=== PATIENT | male | born 1980 | race Two or more races ===

== ENCOUNTER 2025-09-27 17:59 | Inpatient (IN) | payer MEDICAID, OTHER ==
[~2025-09-27] VITALS: Ht 172.7 cm; Wt 89.5 kg
[2025-09-27 18:43] LABS: Hematocrit 29.8 % (41.0-53.0); Hemoglobin 10.2 g/dL (13.5-17.5); Mean Corpuscular Hemoglobin 32.1 pg (28.0-32.0); Mean Corpuscular Volume 94.0 fL (80.0-100.0); Nucleated Red Blood Cells % 0.1 %
[2025-09-27 18:52] LABS: Sodium 140 mmol/L (136-145)
[2025-09-27 18:53] LABS: Anion Gap 14 (5-15)
[2025-09-27 18:54] LABS: Calcium 9.3 mg/dL (8.7-10.4)
[2025-09-27 18:58] LABS: BUN/Creatinine Ratio 3.8 (10.0-20.0); Glucose 81 mg/dL (74-106)
[2025-09-27 19:00] LABS: Blood Urea Nitrogen 26 mg/dL (9-23); Carbon Dioxide 32 mmol/L (20-31); Chloride 94 mmol/L (98-107); Potassium 3.4 mmol/L (3.5-5.1)
--- NOTE | 2025-09-27 19:24 | ED.PDOC ---
History of Present Illness HPI Comments 45-year-old, Bulgarian-speaking male presents with significant other, who is translating on his behalf, for chief complaint of near-syncope. Patient reports on sudden onset of near-syncope episode, characterized by lightheadedness, after completing his scheduled 3.5 hour hemodialysis session at 1315, this afternoon. Patient, sudden needing to sit down, immediately, and then developing a headache and nausea afterwards. Pertinent medical history of hemodialysis, which he began one year ago, and hypertension and family history of hypertension. He denies any recent ill med, injuries, sick contacts, change in medications, or further pertinent events her history. Patient denies having any chest pain, shortness of breath, vomiting, or further acute symptoms. Upon arrival to the ED triage, patient was found with a blood pressure of 180/109. Chief Complaint: High Blood Pressure Time Seen by MD: 18:20 Allergies: Coded Allergies: NO KNOWN ALLERGIES (Unverified , 09/27/25) Mode of Arrival: Ambulatory Past Medical History PAST MEDICAL HISTORY: ESRD (With hemodialysis), HTN Surgical History (Other): Fistula shunt Family History Family History: No family hx of Cancer, No family hx of DM, No family hx of Heart eduardo, No family hx ofKidney eduardo, No family hx of Liver eduardo, Family hx of DM, Family hx of Cancer, Family hx of heart eduardo, Family hx of Kidney eduardo, Family hx of liver eduardo, Family hx of lung eduardo, Family hx of stroke Social History Smoker: Non-Smoker Alcohol: Denies ETOH Use Drugs: Denies Drug Use Lives In: Home Constitutional: denies: chills, diaphoresis, fatigue, fever, malaise, sweats, weakness, others EENTM: denies: blurred vision, double vision, ear bleeding, ear discharge, ear drainage, ear pain, ear ringing, eye pain, eye redness, hearing loss, mouth pain, mouth swelling, nasal discharge, nose bleeding, nose congestion, nose pain, photophobia, tearing, throat pain, throat swelling, voice changes, others Respiratory: denies: cough, hemoptysis, orthopnea, SOB at rest, shortness of breath, SOB with excertion, stridor, wheezing, others Cardiovascular: reports: lightheadedness; denies: chest pain, dizzy spells, diaphoresis, Dyspnea on exertion, edema, irregular heart beat, left arm pain, palpitations, PND, syncope, others Gastrointestinal: reports: nausea; denies: abdomen distended, abdominal pain, blood streaked bowels, constipated, diarrhea, dysphagia, difficulty swallowing, hematemesis, melena, poor appetite, poor fluid intake, rectal bleeding, rectal pain, vomiting, others Genitourinary: denies: burning, dysuria, flank pain, frequency, hematuria, incontinence, penile discharge, penile sore, pain, testicle pain, testicle swelling, urgency, others Neurological: reports: headache; denies: dizziness, fainting, left sided numbness, left sided weakness, numbness, paresthesia, pre-existing deficit, right sided numbness, right sided weakness, seizure, speech problems, tingling, tremors, weakness, others Musculoskeletal: denies: back pain, gout, joint pain, joint swelling, muscle pain, muscle stiffness, neck pain, others Integumetry: denies: bruises, change in color, change in hair/nails, dryness, laceration, lesions, lumps, rash, wounds, others Allergic/Immunocompromised: denies: Difficulty Healing, Frequent Infections, Hives, Itching, others Hematologic/Lymphatic: denies: anemia, blood clots, easy bleeding, easy bruising, swollen glands, others Endocrine: denies: excessive hunger, excessive sweating, excessive thirst, excessive urination, flushing, intolerance to cold, intolerance to heat, unexplained weight gain, unexplained weight loss, others Psychiatric: denies: anxiety, bipolar disorder, depression, hopeless, panic disorder, schizophrenia, sleepless, suicidal, others All Other Systems: Reviewed and Negative Physical Exam General Appearance: Moderate Distress HEENT: Pale Conjuntivae (L), Pale Conjuntivae (R), Pharynx Normal, TMs Normal Neck: Full Range of Motion, Non-Tender, Normal, Normal Inspection Respiratory: Chest Non-Tender, Lungs Clear, No Accessory Muscle Use, No Respiratory Distress, Normal Breath Sounds Cardiovascular: No Edema, No JVD, No Murmur, No Gallop, Normal Peripheral Pulses, Regular Rate/Rhythm, Other (Eric catheter to the right chest) Breast Exam: Deferred Gastrointestinal: No Organomegaly, Non Tender, No Pulsatile Mass, Normal Bowel Sounds, Soft Genitalia: Deferred Pelvic: Deferred Rectal: Deferred Extremities: No calf tenderness, Normal capillary refill, Normal inspection, Normal range of motion, Non-tender, No pedal edema Musculoskeletal : Apperance: Normal Neurologic: Alert, doctor podiatric medicine II-XII nml as Tested, Motor Weakness, No Motor Deficits, Normal Affect, No Sensory Deficits Cerebellar Function: Normal Reflexes: Normal Skin: Dry, Normal Color, Warm Lymphatic: No Adenopathy Was a procedure done? Was a procedure done?: No Differential Dx Considerations may include: Dehydration, electrolyte imbalance, arrhythmia, post dialysis complication, hypertension, among others X-Ray, Labs, Meds, VS Vital Signs Date Time Temp Pulse Resp B/P (MAP) Pulse Ox O2 Delivery O2 Flow Rate FiO2 09/27/25 18:04 97.6 82 18 180/109 100 97.6 09/27/25 18:04 Room Air* 0 21 Lab Test 09/27/25 18:34 Range/Units White Blood Count 4.9 4.4-10.8 10^3/uL Red Blood Count 3.18 L 4.5-5.90 10^6/uL Hemoglobin 10.2 L 13.5-17.5 g/dL Hematocrit 29.8 L 41.0-53.0 % Mean Corpuscular Volume 94.0 80.0-100.0 fL Mean Corpuscular Hemoglobin 32.1 H 28.0-32.0 pg Mean Corpuscular Hemoglobin Concent 34.1 32.0-36.0 g/dL Red Cell Distribution Width 14.3 11.8-14.3 % Platelet Count 180 140-450 10^3/uL Mean Platelet Volume 8.6 6.9-10.8 fL Neutrophils (%) (Auto) 59.8 37.0-80.0 % Lymphocytes (%) (Auto) 24.0 10.0-50.0 % Monocytes (%) (Auto) 9.1 0.0-12.0 % Eosinophils (%) (Auto) 4.7 0.0-7.0 % Basophils (%) (Auto) 2.4 H 0.0-2.0 % Neutrophils # (Auto) 2.9 1.6-8.6 10 ^3/uL Lymphocytes # (Auto) 1.2 0.4-5.4 10 ^3/uL Monocytes # (Auto) 0.4 0-1.3 10 ^3/uL Eosinophils # (Auto) 0.2 0-0.8 10 ^3/uL Basophils # (Auto) 0.1 0-0.2 10 ^3/uL Nucleated Red Blood Cells 0.1 % Sodium Level 140 136-145 mmol/L Potassium Level 3.4 L 3.5-5.1 mmol/L Chloride Level 94 L 98-107 mmol/L Carbon Dioxide Level 32 H 20-31 mmol/L Anion Gap 14 5-15 Blood Urea Nitrogen 26 H 9-23 mg/dL Creatinine 6.82 H 0.700-1.30 mg/dL Glomerular Filtration Rate Calc 10 >90 mL/min BUN/Creatinine Ratio 3.8 L 10.0-20.0 Serum Glucose 81 74-106 mg/dL Calcium Level 9.3 8.7-10.4 mg/dL CAT scan of the head is negative An IV Hep-Lock was established The BUN is 26 and the creatinine is 6.82 which is consistent with the ESRD on dialysis The potassium is 3.4 The chemistry panel otherwise is within normal limits The patient's CBC shows chronic anemia with a hemoglobin of 10.2 and hematocrit of 29.8 The patient remains symptomatic The patient is being admitted at this time Images Reviewed?: Images reviewed and evaluated by me Time of 1ST Reevaluation: 18:50 Reevaluation 1ST: Unchanged Patient Education/Counseling: Diagnosis, Treatment, Prognosis Family Education/Counseling: Diagnosis, Treatment, Prognosis SEPSIS Sepsis Screen Date sepsis recognized/suspect: Sep 27, 2025 Time Sepsis recognized/suspect: 1803 Recent Procedure: No On Antibiotic Therapy: No Respiratory Rate >20: No Heart Rate >90: No Temp<36 C (96.8 F) or >38.3 C: No SBP <90 or MAP <65 mmHG: No New Acute Mental Status Change: No Is the patient on CPAP, BIPAP,: No Physician Orders Heplock Iv (09/27/25 18:25) Solar Energy Systems Designer (09/27/25 18:25) Blood Pressure (09/27/25 18:25) Pulse Oximetry (09/27/25 18:25) Electrocardigram (09/27/25 18:25) Head Without Contrast (09/27/25 18:25) Vital Signs Date Time Temp Pulse Resp B/P (MAP) Pulse Ox O2 Delivery O2 Flow Rate FiO2 09/27/25 18:04 97.6 82 18 180/109 100 97.6 09/27/25 18:04 Room Air* 0 21 Laboratory Tests Test 09/27/25 18:34 White Blood Count 4.9 10^3/uL (4.4-10.8) Departure 1 Departure Time of Disposition: 19:56 Impression: Primary Impression: Autonomic dysfunction Additional Impression: ESRD on dialysis Disposition: ADMITTED INPATIENT Admit to: Tele Condition: Fair Critical Care Note Critical Care Time?: Yes (45 min-critical care time only) Stability Stability form required: Yes Unstable for transfer: Telemetry monitoring (Telemetry monitoring required), ED Physician Assesment (Clinical assesment) Heart Score Heart Score: Heart Score Response (Comments) Value History N/A 0 EKG N/A 0 Age N/A 0 Risk Factors N/A 0 Troponin N/A 0 Total 0 I personally scribed for TOO SALGUERO MD ([email or web address]) on 09/27/25 at 19:24. Electronically submitted by Wilfrido Ambrose ([email or web address]). TOO SALGUERO MD Sep 27, 2025 19:24
--- NOTE | 2025-09-27 19:38 | DVH ---
COMPUTERIZED TOMOGRAPHY OF THE HEAD WITHOUT CONTRAST REASON FOR STUDY: near syncope COMPARISON: None TECHNIQUE: Helical tomographic scans were obtained through the brain. 2-D coronal and sagittal reformatted images are provided. Radiation optimization: All CT scans at this facility use at least one of these dose optimization techniques: Automated exposure control mA and/or kV adjustment per patient size (includes targeted exams where dose is matched to clinical indication) or iterative reconstruction. RADIATION DOSE: CTDI: 52 mGy DLP: 836 mGy-cm FINDINGS: No suspicious intracranial hyperdensity to suggest acute blood. There is no mass effect nor midline shift. There is no hydrocephalus. The suprasellar cistern is intact. The calvarium is intact. The visualized mastoid air cells and paranasal sinuses are clear. IMPRESSION: No acute intracranial abnormality.
--- NOTE | 2025-09-27 20:51 | DVHHPRES ---
History of Present Illness Resident Creating Document: BALJIT RICHARDSON RESIDENT History of Present Illness Mr. Kaiser Rodriguez, a 45-year-old male with past medical history of ESRD on M and F dialysis, producing urine, tunneled catheter placed on the right side of chest wall, uncontrolled hypertension presented to the ER due to severe global headache. The patient describes 3 hours after dialysis he started having intractable headache and his BP was ranging in 200s/100s. He reports experiencing 3 episodes of headache following last 3 dialysis. The patient also reports feeling dizzy while dialysis. He denies blurry vision, urinary symptoms, chest pain, shortness of breath, fever or any other complaints. Past medical history: as above Past surgical history: None Smoking history: Previously occasional smoker, did not smoked since last 2 years Alcohol: Occasional Drugs: Occasional marijuana, quit since last 2 years Home medications: Cetirizine, amlodipine, carvedilol, sevelamer, vitamin D3, Velphro, Lokelma Allergies: No known allergies Code status: Full code Review of Systems Allergies: Coded Allergies: NO KNOWN ALLERGIES (Unverified , 09/27/25) Exam Vital Signs Vital Signs Date Time Temp Pulse Resp B/P (MAP) Pulse Ox O2 Delivery O2 Flow Rate FiO2 09/27/25 18:04 97.6 82 18 180/109 100 97.6 09/27/25 18:04 Room Air* 0 21 Exam Pt is lying on bed General Appearance: Alert, Oriented X3, Cooperative, Mild distress HEENT: Atraumatic, Mucous membranes moist/pink Respiratory: Right-sided chest wall tunneled catheter and bandage placed, Clear to auscultation, Normal air movement, No added sounds Cardiovascular: Regular rate, Normal S1, Normal S2, No murmurs Abdominal/ : Active bowel sounds, Soft, no distention, no tenderness Extremities: No edema, Normal pulses, No tenderness/swelling Skin: No Significant rash, except past surgical scars Neuro: Normal speech, sensorimotor deficits none Psych/Mental Status: Mental status NL, Mood NL Nurse was there as tube worker during examination Labs/Xrays Labs Test 09/27/25 18:34 Range/Units White Blood Count 4.9 4.4-10.8 10^3/uL Red Blood Count 3.18 L 4.5-5.90 10^6/uL Hemoglobin 10.2 L 13.5-17.5 g/dL Hematocrit 29.8 L 41.0-53.0 % Mean Corpuscular Volume 94.0 80.0-100.0 fL Mean Corpuscular Hemoglobin 32.1 H 28.0-32.0 pg Mean Corpuscular Hemoglobin Concent 34.1 32.0-36.0 g/dL Red Cell Distribution Width 14.3 11.8-14.3 % Platelet Count 180 140-450 10^3/uL Mean Platelet Volume 8.6 6.9-10.8 fL Neutrophils (%) (Auto) 59.8 37.0-80.0 % Lymphocytes (%) (Auto) 24.0 10.0-50.0 % Monocytes (%) (Auto) 9.1 0.0-12.0 % Eosinophils (%) (Auto) 4.7 0.0-7.0 % Basophils (%) (Auto) 2.4 H 0.0-2.0 % Neutrophils # (Auto) 2.9 1.6-8.6 10 ^3/uL Lymphocytes # (Auto) 1.2 0.4-5.4 10 ^3/uL Monocytes # (Auto) 0.4 0-1.3 10 ^3/uL Eosinophils # (Auto) 0.2 0-0.8 10 ^3/uL Basophils # (Auto) 0.1 0-0.2 10 ^3/uL Nucleated Red Blood Cells 0.1 % Sodium Level 140 136-145 mmol/L Potassium Level 3.4 L 3.5-5.1 mmol/L Chloride Level 94 L 98-107 mmol/L Carbon Dioxide Level 32 H 20-31 mmol/L Anion Gap 14 5-15 Blood Urea Nitrogen 26 H 9-23 mg/dL Creatinine 6.82 H 0.700-1.30 mg/dL Glomerular Filtration Rate Calc 10 >90 mL/min BUN/Creatinine Ratio 3.8 L 10.0-20.0 Serum Glucose 81 74-106 mg/dL Calcium Level 9.3 8.7-10.4 mg/dL SEPSIS Sepsis Screen Date sepsis recognized/suspect: Sep 27, 2025 Time Sepsis recognized/suspect: 1803 Recent Procedure: No On Antibiotic Therapy: No Respiratory Rate >20: No Heart Rate >90: No Temp<36 C (96.8 F) or >38.3 C: No SBP <90 or MAP <65 mmHG: No New Acute Mental Status Change: No Is the patient on CPAP, BIPAP,: No Physician Orders Heplock Iv (09/27/25 18:25) Elevator Serviceman (09/27/25 18:25) Blood Pressure (09/27/25 18:25) Pulse Oximetry (09/27/25 18:25) Electrocardigram (09/27/25 18:25) Head Without Contrast (09/27/25 18:25) Vital Signs Date Time Temp Pulse Resp B/P (MAP) Pulse Ox O2 Delivery O2 Flow Rate FiO2 09/27/25 18:04 97.6 82 18 180/109 100 97.6 09/27/25 18:04 Room Air* 0 21 Laboratory Tests Test 09/27/25 18:34 White Blood Count 4.9 10^3/uL (4.4-10.8) Assessment/Plan Assessment/Plan Intractable headache secondary to hypertensive emergency Hypertensive heart disease with possible chronic diastolic heart failure -Tylenol --amlodipine and carvedilol started ESRD on dialysis -nephrology consulted -sevelamer Hypokalemia, potassium 3.4 -repleted Vitamin-D deficiency Vitamin-D 3 GI prophylaxis: Pantoprazole DVT prophylaxis: SCDs Diet: Renal Goals of care discussed with the patient for more than 27 minutes: Full code status Case discussed with Dr. Boudreaux , patient and RN Plan discussed with: Patient, Other (RN) Date of Service: Sep 28, 2025 Billing Provider: KELSIE BOUDREAUX MD Common Visit Codes: [id number] INP/OBS CARE (HIGH) Secondary Visit Codes: [id number] CARE PLAN 30 MINUTES BALJIT RICHARDSON Sep 27, 2025 20:51 KELSIE BOUDREAUX MD Sep 28, 2025 10:52
[2025-09-27] MEDS ORDERED: ACETAMINOPHEN 325 MG TAB PO PRN (21:15)
[2025-09-27] MEDS: ACETAMINOPHEN 325 MG TAB PO ONE (21:47)
[2025-09-27] MEDS: POTASSIUM CHL 20 Meq TABLET PO ONE (21:50)
[2025-09-27] MEDS: CARVEDILOL 3.125 MG TAB PO ONE (21:50)
--- NOTE | 2025-09-27 22:57 | ECG ---
[facility] Test Date: 2025-09-27 Test Time: 21:59:57 Pat Name: JULIA PIERRE Department: ER Room: 0247T Gender: M Attending Ambulatory Care: YAMILET : 1980 Requested By: TOO SALGUERO Order Number: [id number] Reading MD: Rajesh Santiago Measurements Intervals [place] Rate: 75 P: 9 AR: 147 QRS: 73 QRSD: 80 T: 96 QT: 417 QTc: 466 Interpretive Statements Sinus rhythm Nonspecific T abnormalities, lateral leads Electronically Signed On 09-29-2025 17:46:45 PST by Rajesh Santiago Please click the below link to view image of tracing.
[2025-09-27 23:12] LABS: Urine Protein, UAD 3+ (Negative)
[2025-09-27 23:15] LABS: Amphetamine Screen, Urine Neg (NEGATIVE); Barbiturate Scree,Urine Neg (NEGATIVE); Benzodiazephine Screen, Urine Neg (NEGATIVE); Cannabinoid Screen, Urine Neg (NEGATIVE); Cocaine Screen, Urine Neg (NEGATIVE); Opiate Scree,Urine Neg (NEGATIVE); Phencyclidine Screen, Urine Neg (NEGATIVE)
--- NOTE | 2025-09-27 23:31 | DVH ---
CHEST RADIOGRAPH Indication: hypertensive emergency Technique: Single frontal view of the chest was obtained COMPARISON: None FINDINGS: Right-sided dialysis line with tip near the cavoatrial junction. Lungs and pleural spaces are clear. Cardiac silhouette and bhavani are within normal limits. Bones and soft tissues demonstrate no significant abnormality. IMPRESSION: No acute disease.
[2025-09-28] VITALS (10 sets, daily range): BP systolic 140–166; BP diastolic 84–112; PULSE 66–78; RESP 14–19; TEMP 97.6–99.6; O2SAT 95–100
[2025-09-28] MEDS ORDERED: [UNRECOGNIZED DRUG - CODE] PO (01:50)
[2025-09-28] MEDS ORDERED: CARV6.2551 PO (01:50)
[2025-09-28] MEDS ORDERED: SEVE800T10 PO (01:50)
[2025-09-28] MEDS ORDERED: B-CO1TAB60 PO (01:50)
[2025-09-28] MEDS ORDERED: AMLO1TAB22 PO (01:50)
[2025-09-28] MEDS: PANTOPRAZOLE 40 MG TAB PO SCH (05:53)
[2025-09-28 07:46] LABS: Hematocrit 32.0 % (41.0-53.0); Hemoglobin 11.2 g/dL (13.5-17.5); Mean Corpuscular Hemoglobin 32.4 pg (28.0-32.0); Mean Corpuscular Volume 92.8 fL (80.0-100.0); Nucleated Red Blood Cells % 0.0 %
[2025-09-28 08:08] LABS: Alanine Aminotransferase 12 U/L (7-40); Albumin 4.4 g/dL (3.2-4.8); Alkaline Phosphatase 59 U/L (46-116); Anion Gap 10 (5-15); BUN/Creatinine Ratio 4.0 (10.0-20.0); Bilirubin, Total 0.5 mg/dL (0.2-1.0); Calcium 9.3 mg/dL (8.7-10.4); Potassium 5.0 mmol/L (3.5-5.1); Sodium 139 mmol/L (136-145); Total Protein 7.8 g/dL (5.7-8.2)
[2025-09-28 08:10] LABS: Blood Urea Nitrogen 36 mg/dL (9-23); Carbon Dioxide 33 mmol/L (20-31); Chloride 96 mmol/L (98-107); Glucose 73 mg/dL (74-106)
[2025-09-28] MEDS: SEVELAMER 800 MG TAB PO SCH (08:42)
[2025-09-28] MEDS: CARVEDILOL 3.125 MG TAB PO SCH (08:42)
--- NOTE | 2025-09-28 13:03 | DVHPNRES ---
Progress Note Date Seen: Sep 28, 2025 Resident Creating Document: MIGDALIA GRANDE Medical Necessity Reason Pt with a Central, PICC or Fol: No Subjective Review of Systems Patient is a 45-year-old Congolese-speaking male with past medical history of ESRD on HD and HTN, presented to [facility] ED with complaint of severe global headache and near-syncope. The patient reports that approximately three hours after completing his scheduled 3.5-hour dialysis session today, he developed an intractable headache and noted his blood pressure was in the 200s/100s. He describes similar episodes of headache following his last three dialysis treatments and occasional dizziness during dialysis. He describes similar episodes of headache following his last three dialysis treatments and occasional dizziness during dialysis. He also reports a near-syncope episode characterized by sudden lightheadedness requiring him to sit down, followed by headache and nausea. At home, his blood pressure is usually in the 160s systolic; he takes carvedilol twice daily. The patient was started on carvedilol 6.25 mg amlodipine 5 mg. Past medical history: End-stage renal disease on hemodialysis Mondays and Fridays, residual urine output, tunneled catheter in the right chest wall, and uncontrolled hypertension Past surgical history: None Smoking history: Previously occasional smoker, did not smoked since last 2 years Alcohol: Occasional Drugs: Occasional marijuana, quit since last 2 years Home medications: Cetirizine, carvedilol, sevelamer, vitamin D3, Velphro, Lokelma Allergies: No known allergies Patient seen and examined at bedside. Patient is alert and oriented to time, place person and responding to all questions. Constitutional: Headache, dizziness Eyes: No Pain, No Vision change, No Conjunctivae inflammation, No Eyelid inflammation, No Other, No Redness ENT: No Ear pain, No Ear discharge, No Nose pain, No Nose discharge, No Nose congestion, No Mouth pain, No Mouth swelling, No Throat pain, No Throat swelling, No Other Cardiovascular: No Chest Pain, No Palpitations, No Orthopnea, No Paroxysmal No Dyspnea, No Edema, Lt Headedness, No Other Respiratory: No Cough, No Dry, No Shortness of breath, No SOB with exertion, No Wheezing, No Hemoptysis, No Pleuritic Pain, No Sputum, No Other Gastrointestinal: Nausea, No Vomiting, No Abdominal Pain, No Diarrhea, No Constipation, No Melena, No Hematochezia, No Other Genitourinary: No Dysuria, No Frequency, No Incontinence, No Hematuria, No Retention, No Other Musculoskeletal: No other, No neck pain, No shoulder pain, No arm pain, No back pain, No hand pain, No leg pain, No foot pain Skin: No Rash, No Lesions, No Jaundice, No Bruising, No Other Objective vital signs Vital Sign Date Time Temp Pulse Resp B/P (MAP) Pulse Ox O2 Delivery O2 Flow Rate FiO2 09/28/25 12:48 98.0 66 18 166/112 (130) 100 98.0 09/28/25 08:00 Room Air* 0 21 Total Intake and Output 09/27/25 09/27/25 09/28/25 15:00 23:00 07:00 Intake Total 0 ml Balance 0 ml medications Current Medications Medications Dose Ordered Sig/Juan Pablo Route Start Time Stop Time Status Last Admin Dose Admin Acetaminophen 650 mg Q4HP PRN PO 09/27/25 21:15 Amlodipine Besylate 5 mg DAILY PO 09/28/25 10:00 09/28/25 08:41 5 MG Carvedilol 6.25 mg Q12HR PO 09/28/25 10:00 09/28/25 08:42 6.25 MG Sevelamer HCl 800 mg TIDWM PO 09/28/25 08:00 09/28/25 08:42 800 MG Pantoprazole Sodium 40 mg DAILY@0600 PO 09/28/25 06:00 09/28/25 05:53 40 MG Examination General Appearance: Cooperative. Well developed. Well nourished. NAD Head Exam: Normal inspection Neck Exam: Normal inspection. Non-tender. Normal alignment Pulmonary/Respiratory: Chest non-tender. Clear bilateral breath sounds, no crackles, no wheezing. Cardiovascular/Chest: Regular rate and rhythm. No murmurs. No JVD. Eric catheter to the right chest Peripheral Pulses: 2+ Radial (R). 2+ Radial (L). 2+ Pedal (R). 2+ Pedal (L) Abdominal Exam: Normal bowel sounds. Soft. normal abdomen, no visible veins, Nontender. No hepatospenomegaly. No masses Ankle Exam: Negative ankle edema Lower extremities: Negative lower extremity edema Neuro/Mental Status: A&O x4. Coherent. Thoughts/Psych: Normal thought pattern. Appropriate mood and affect. Good judgement and insight Skin Exam: Normal inspection. Normal color. Warm. Dry laboratory and microbiology Laboratory Tests 09/28/25 07:32 Test 09/28/25 07:32 Range/Units Serum Glucose 73 L 74-106 mg/dL Labs and/or images reviewed: Labs reviewed by me, Image(s) reviewed by me Problem List/Assessment/Plan Problem List/Assessment/Plan Intractable headache secondary to hypertensive emergency Hypertensive heart disease with possible chronic diastolic heart failure Intractable headache due to above EKG: Sinus rhythm. Nonspecific T abnormalities, lateral leads Chest X-ray: No acute disease. Head CT: No acute intracranial abnormality. Pain management with Tylenol Amlodipine 10 MG PO daily Carvedilol 6.25 MG PO q12h Hydralazine 25 MG PO q8h MRSA screen Hepatitis B surgace antigen End-stage renal disease on hemodialysis Saturday add Saturday Nephrology consulted Sevelamer 800 MG PO tid Hypokalemia secondary to recent dialysis, potassium 3.4 repleted Diet: Renal PUD prophylaxis: protonix 40mg Goals of care: Full code, discussed for >30 minutes on 09/28/25 Plan discussed with patient Plan discussed with Dr. Ellison Plan discussed with: Patient My Orders My Orders Orders - MIGDALIA GRANDE Procedure Category Date Status Time Complete Blood Count LAB 09/29/25 Verified 04:00 Comprehensive LAB 09/29/25 Verified Metabolic Panel 04:00 Date of Service: Sep 28, 2025 Billing Provider: VELMA ELLISON MD Common Visit Codes: [id number] INP/OBS CARE(HIGH) MIGDALIA GRANDE Sep 28, 2025 13:03
--- NOTE | 2025-09-28 15:01 | DVHINCON2 ---
Date of service: Sep 28, [address] Mclean Reason for Consultation End-stage renal disease History of Present Illness 45-year-old patient with significant history of end-stage renal disease on hemodialysis Mondays and Fridays with some residual renal function, hypertension who presents to the hospital with global headache throbbing in nature he states that he has had similar symptoms after dialysis with his blood pressure is elevated to 200/100. Occasional he will also feel dizziness. Patient endorses doing well by the 3 hour tong of dialysis but three and a 1/2 hours he feels drained at headache. He has been on hemodialysis for two years previously pulled the and recently moved to the area and he has other goal only three dialysis treatments recently. At home his blood pressure is usually in the 160 systolic takes carvedilol twice a day only. He denies chest pain orthopnea PND head he makes significant amount of urine. Laboratory data after his dialysis yesterday revealed mild hypokalemia. Past Medical History End-stage renal disease, hypertension Past Surgical History Dialysis access placement Allergies: Coded Allergies: NO KNOWN ALLERGIES (Unverified , 09/27/25) Home Meds Reported Medications Sevelamer Carbonate (Sevelamer Carbonate) 800 Mg Tab, 2 TAB PO TID 09/28/25 Amlodipine Besylate (Amlodipine Besylate) 5 Mg Tab, 1 TAB PO DAILY 09/28/25 Carvedilol (Carvedilol) 6.25 Mg Tab, 1 TAB PO BID 09/28/25 Cholecalciferol (D3 High Potency) 250 Mcg Cap, 1 TAB PO DAILY 09/28/25 B-Complex W/ C & Folic Acid (Nephro-Jae) Tab, 1 TAB PO DAILY 09/28/25 Current Medications Current Medications Medications (Trade) Dose Ordered Sig/Juan Pablo Route PRN Reason Start Time Stop Time Status Last Admin Acetaminophen (Tylenol Tablet) 650 mg Q4HP PRN PO PAIN SCALE 1-3 OR TEMP>100.4 09/27/25 21:15 Amlodipine Besylate (Norvasc Tablet) 5 mg DAILY PO 09/28/25 10:00 09/28/25 08:41 Carvedilol (Coreg Tablet) 6.25 mg Q12HR PO 09/28/25 10:00 09/28/25 08:42 Sevelamer HCl (Renagel) 800 mg TIDWM PO 09/28/25 08:00 09/28/25 13:56 Pantoprazole Sodium (Protonix Tablet) 40 mg DAILY@0600 PO 09/28/25 06:00 09/28/25 05:53 Family History: Hypertension G8 MOTHER Social History Denies alcohol drug or smoking Review of Systems HEENT: Oral mucosa dry Neck no JVD Cardiovascular: Denies for chest pain denies orthopnea or PND Respiratory: Denies cough or shortness of breath Gastrointestinal: Denies for nausea vomiting Musculoskeletal: Denies myalgias Neurological: Denies focal weakness, positive for headache Dermatological: Denies any rash The rest of the review of systems were reviewed pertinent positives and pertinent negatives are as per HPI up to 12 points review of systems H&P Exam Vital Signs/I&O Vital Sign Date Time Temp Pulse Resp B/P (MAP) Pulse Ox O2 Delivery O2 Flow Rate FiO2 09/28/25 12:48 98.0 66 18 166/112 (130) 100 98.0 09/28/25 08:00 Room Air* 0 21 Intake and Output 09/27/25 09/28/25 19:00 07:00 Intake Total 0 ml Balance 0 ml Intake Oral 0 ml # Voids 1 Physical Exam HEENT: No evidence of JVD, no oral ulcers. Pulmonary: Lungs are clear on auscultation bilaterally Cardiovascular S1-S2, no S3 or S4 Abdomen: Bowel sounds positive, soft no rebound tenderness Skin: No rash Neurological: Alert, oriented, no focal weakness Labs/Diagnostic Data Labs/Diagnostic Data Laboratory Tests Test 09/28/25 07:32 09/27/25 22:30 09/27/25 18:34 Range/Units White Blood Count 4.9 4.9 4.4-10.8 10^3/uL Red Blood Count 3.44 L 3.18 L 4.5-5.90 10^6/uL Hemoglobin 11.2 L 10.2 L 13.5-17.5 g/dL Hematocrit 32.0 L 29.8 L 41.0-53.0 % Mean Corpuscular Volume 92.8 94.0 80.0-100.0 fL Mean Corpuscular Hemoglobin 32.4 H 32.1 H 28.0-32.0 pg Mean Corpuscular Hemoglobin Concent 35.0 34.1 32.0-36.0 g/dL Red Cell Distribution Width 14.0 14.3 11.8-14.3 % Platelet Count 180 180 140-450 10^3/uL Mean Platelet Volume 8.8 8.6 6.9-10.8 fL Neutrophils (%) (Auto) 61.3 59.8 37.0-80.0 % Lymphocytes (%) (Auto) 22.8 24.0 10.0-50.0 % Monocytes (%) (Auto) 6.5 9.1 0.0-12.0 % Eosinophils (%) (Auto) 6.0 4.7 0.0-7.0 % Basophils (%) (Auto) 3.4 H 2.4 H 0.0-2.0 % Neutrophils # (Auto) 3.0 2.9 1.6-8.6 10 ^3/uL Lymphocytes # (Auto) 1.1 1.2 0.4-5.4 10 ^3/uL Monocytes # (Auto) 0.3 0.4 0-1.3 10 ^3/uL Eosinophils # (Auto) 0.3 0.2 0-0.8 10 ^3/uL Basophils # (Auto) 0.2 0.1 0-0.2 10 ^3/uL Nucleated Red Blood Cells 0.0 0.1 % Sodium Level 139 140 136-145 mmol/L Potassium Level 5.0 3.4 L 3.5-5.1 mmol/L Chloride Level 96 L 94 L 98-107 mmol/L Carbon Dioxide Level 33 H 32 H 20-31 mmol/L Anion Gap 10 14 5-15 Blood Urea Nitrogen 36 #H 26 H 9-23 mg/dL Creatinine 8.98 #H 6.82 H 0.700-1.30 mg/dL Glomerular Filtration Rate Calc 7 10 >90 mL/min BUN/Creatinine Ratio 4.0 L 3.8 L 10.0-20.0 Serum Glucose 73 L 81 74-106 mg/dL Calcium Level 9.3 9.3 8.7-10.4 mg/dL Total Bilirubin 0.5 0.2-1.0 mg/dL Aspartate Amino Transferase (AST) 10 L 13-40 U/L Alanine Aminotransferase (ALT) 12 7-40 U/L Alkaline Phosphatase 59 46-116 U/L Total Protein 7.8 5.7-8.2 g/dL Albumin 4.4 3.2-4.8 g/dL Urine Color Colorless Yellow Urine Clarity Clear Clear Urine pH 8.0 5.0-9.0 Urine Specific [place] 1.004 1.001-1.035 Urine Protein 3+ H Negative Urine Ketones Negative Negative Urine Blood Trace H Negative /uL Urine Nitrite Negative Negative Urine Bilirubin Negative Negative Urine Urobilinogen Normal Negative mg/dL Urine Leukocyte Esterase Negative Negative /uL Urine RBC None seen 0 - 3 /hpf Urine Microscopic WBC 3 0-3 /HPF Urine Squamous Epithelial Cells None seen <5 /hpf Urine Bacteria None seen None Seen /hpf Urine Glucose 1+ H Normal mg/dL Urine Opiates Screen Neg NEGATIVE Urine Fentanyl Screen Neg NEGATIVE Urine Barbiturates Screen Neg NEGATIVE Urine Phencyclidine Screen Neg NEGATIVE Urine Amphetamines Screen Neg NEGATIVE Urine Benzodiazepines Screen Neg NEGATIVE Urine Cocaine Screen Neg NEGATIVE Urine Cannabinoids Screen Neg NEGATIVE HCT chest x-ray within the normal limits Assessment Assessment: 1. End-stage renal disease on hemodialysis Saturday add Saturday 2. Accelerated hypertension 3. Headache 4. Hypokalemia secondary to recent dialysis Recommendation add plan Increase amlodipine 10 mg daily Start hydralazine 25 mg every 8 hours, hold for SBP less than 110 Continue carvedilol 6.25 mg twice a day PRN clonidine 0.1 mg for SBP more than 180 Low-potassium diet Dialysis as per his regular schedule Resume antihypertensive meds up titrate as needed Fluid restriction less than 1 L per day We will modify his dialysis as an outpatient He needs a AV fistula creation which is in process Thank you very much for allowing us to participate in the care of this patient please contact if you have any questions. Plan discussed with: Patient JACOB PHAN MD Sep 28, 2025 15:01
--- NOTE | 2025-09-28 20:59 | DVHSR ---
APPROVED REPORT EXAM: Two-dimensional and M-mode echocardiogram with Doppler and color Doppler. Blood Pressure: 148/92 mmHg INDICATION Hypertension RISK FACTORS Height: 5'8", Weight: 194 DIMENSIONS LVDd 5.4 (3.8-5.7cm) LA (2D) 4.0 (1.9-4.0cm) Aortic Root 3.3 (2.0-3.7cm) LVDs 4.0 (2.5-4.0cm) LA (MM) (1.9-4.0cm) Aortic Cusp Exc 2.1 (1.5-2.0cm) EF (%) 50.0 (55-70%) Rt. Atrium 4.1 (1.9-4.0cm) Asc. Aorta 3.2 cm IVSd 1.0 (0.7-1.1cm) RV (D) 3.9 (1.8-2.4cm) PWd 1.0 (0.7-1.1cm) Mitral Valve Mitral Mitral Stenosis E wave 0.66m/s MV Mean GR. mmHg A wave 0.71m/s MV Peak GR. mmHg E/A ratio 0.9 2D MVA cm2 DECEL Time 217ms PRESS 1/2 Time ms Aortic Valve Aortic Valve Aortic Stenosis V1 1.01m/s AO Mean GR. 4mmHg V2 1.31m/s AO Peak GR. 7mmHg LVOT Diameter 2.3 (1.8-2.4cm) Doppler KAILYN 3.20cm2 Pulmonic Valve V2 1.40m/s Tricuspid Valve TR Velocity 2.60m/s RVSP 30mmHg Conclusion NORMAL LV EF AND IS 65% NORMAL VALVES NORMAL RV FUNCTION NO EFFUSION
[2025-09-29 01:00] VITALS: BP 134/86; PULSE 83; RESP 18; TEMP 98.1; O2SAT 95
[2025-09-29 05:00] VITALS: BP 128/79; PULSE 73; RESP 18; TEMP 98; O2SAT 98
[2025-09-29 06:33] LABS: Hematocrit 27.4 % (41.0-53.0); Hemoglobin 9.7 g/dL (13.5-17.5); Mean Corpuscular Hemoglobin 32.8 pg (28.0-32.0); Mean Corpuscular Volume 92.8 fL (80.0-100.0); Nucleated Red Blood Cells % 0.1 %
[2025-09-29 06:48] LABS: Alanine Aminotransferase 14 U/L (7-40); Alkaline Phosphatase 47 U/L (46-116); Anion Gap 13 (5-15); BUN/Creatinine Ratio 5.1 (10.0-20.0); Carbon Dioxide 29 mmol/L (20-31); Glucose 74 mg/dL (74-106); Sodium 139 mmol/L (136-145); Total Protein 6.4 g/dL (5.7-8.2)
[2025-09-29 06:49] LABS: Albumin 3.7 g/dL (3.2-4.8); Bilirubin, Total 0.3 mg/dL (0.2-1.0)
[2025-09-29 07:28] LABS: Blood Urea Nitrogen 55 mg/dL (9-23); Calcium 8.5 mg/dL (8.7-10.4); Chloride 97 mmol/L (98-107); Potassium 5.3 mmol/L (3.5-5.1)
[2025-09-29 08:00] VITALS: RESP 18
[2025-09-29 08:42] VITALS: BP 117/77; PULSE 80; RESP 16; TEMP 98.5; O2SAT 96
[2025-09-29] MEDS: FUROSEMIDE 20 MG/2 ML VIAL IV ONE (10:14)
[2025-09-29] MEDS: SODIUM ZIRCONIUM CYCL 10 GM PAK PO ONE (10:16)
[2025-09-29 12:34] VITALS: BP 140/85; PULSE 64; RESP 18; TEMP 97.6; O2SAT 95
[2025-09-29] MEDS ORDERED: CARV-214 PO (13:39)
[2025-09-29] MEDS ORDERED: AML5T PO (13:39)
[2025-09-29] MEDS ORDERED: HYDR25TA87 PO (13:39)
[2025-09-29] MEDS ORDERED: SODI5PAK PO (13:39)
--- NOTE | 2025-09-29 13:41 | DVHDSRES ---
Discharge Summary Date of Admission Resident Creating Document: MIGDALIA GRANDE RESIDENT Sep 27, 2025 at 21:14 Date of Discharge: Sep 29, 2025 Admitting Diagnosis headache Labs/Diagnostic Data: Laboratory Results Test 09/29/25 04:30 09/27/25 22:30 09/27/25 18:34 White Blood Count 4.5 10^3/uL (4.4-10.8) Red Blood Count 2.96 10^6/uL (4.5-5.90) Hemoglobin 9.7 g/dL (13.5-17.5) Hematocrit 27.4 % (41.0-53.0) Mean Corpuscular Volume 92.8 fL (80.0-100.0) Mean Corpuscular Hemoglobin 32.8 pg (28.0-32.0) Mean Corpuscular Hemoglobin Concent 35.3 g/dL (32.0-36.0) Red Cell Distribution Width 13.9 % (11.8-14.3) Platelet Count 144 10^3/uL (140-450) Mean Platelet Volume 9.5 fL (6.9-10.8) Neutrophils (%) (Auto) 49.7 % (37.0-80.0) Lymphocytes (%) (Auto) 33.2 % (10.0-50.0) Monocytes (%) (Auto) 7.9 % (0.0-12.0) Eosinophils (%) (Auto) 6.7 % (0.0-7.0) Basophils (%) (Auto) 2.5 % (0.0-2.0) Neutrophils # (Auto) 2.2 10 ^3/uL (1.6-8.6) Lymphocytes # (Auto) 1.5 10 ^3/uL (0.4-5.4) Monocytes # (Auto) 0.4 10 ^3/uL (0-1.3) Eosinophils # (Auto) 0.3 10 ^3/uL (0-0.8) Basophils # (Auto) 0.1 10 ^3/uL (0-0.2) Nucleated Red Blood Cells 0.1 % Sodium Level 139 mmol/L (136-145) Potassium Level 5.3 mmol/L (3.5-5.1) Chloride Level 97 mmol/L (98-107) Carbon Dioxide Level 29 mmol/L (20-31) Anion Gap 13 (5-15) Blood Urea Nitrogen 55 mg/dL (9-23) Creatinine 10.84 mg/dL (0.700-1.30) Glomerular Filtration Rate Calc 5 mL/min (>90) BUN/Creatinine Ratio 5.1 (10.0-20.0) Serum Glucose 74 mg/dL (74-106) Calcium Level 8.5 mg/dL (8.7-10.4) Total Bilirubin 0.3 mg/dL (0.2-1.0) Aspartate Amino Transferase (AST) < 8 U/L (13-40) Alanine Aminotransferase (ALT) 14 U/L (7-40) Alkaline Phosphatase 47 U/L (46-116) Total Protein 6.4 g/dL (5.7-8.2) Albumin 3.7 g/dL (3.2-4.8) Urine Color Colorless (Yellow) Urine Clarity Clear (Clear) Urine pH 8.0 (5.0-9.0) Urine Specific [place] 1.004 (1.001-1.035) Urine Protein 3+ (Negative) Urine Ketones Negative (Negative) Urine Blood Trace /uL (Negative) Urine Nitrite Negative (Negative) Urine Bilirubin Negative (Negative) Urine Urobilinogen Normal mg/dL (Negative) Urine Leukocyte Esterase Negative /uL (Negative) Urine RBC None seen /hpf (0 - 3) Urine Microscopic WBC 3 /HPF (0-3) Urine Squamous Epithelial Cells None seen /hpf (<5) Urine Bacteria None seen /hpf (None Seen) Urine Glucose 1+ mg/dL (Normal) Urine Opiates Screen Neg (NEGATIVE) Urine Fentanyl Screen Neg (NEGATIVE) Urine Barbiturates Screen Neg (NEGATIVE) Urine Phencyclidine Screen Neg (NEGATIVE) Urine Amphetamines Screen Neg (NEGATIVE) Urine Benzodiazepines Screen Neg (NEGATIVE) Urine Cocaine Screen Neg (NEGATIVE) Urine Cannabinoids Screen Neg (NEGATIVE) Hepatitis B Surface Antigen Negative (Negative) Other Laboratory Tests 09/29/25 04:30 Brief Hx & Hospital Course: The patient is a 45-year-old Stateless-speaking male with a past medical history of end-stage renal disease on hemodialysis and uncontrolled hypertension who presented to [facility] Emergency Department with complaints of severe global headache and near-syncope. He reported that approximately three hours after completing his scheduled 3.5-hour dialysis session, he developed an intractable headache and noted his blood pressure was in the 200s/100s. He described similar episodes of headache following his last three dialysis treatments and occasional dizziness during dialysis. He also reported a near- syncope episode characterized by sudden lightheadedness requiring him to sit down, followed by headache and nausea. At home, his blood pressure is usually in the 160s systolic, and he takes carvedilol twice daily. Past medical history includes end-stage renal disease on hemodialysis Mondays and Fridays with residual urine output and a tunneled catheter in the right chest wall, and uncontrolled hypertension. He has no past surgical history. Social history is notable for previous occasional smoking and marijuana use, both discontinued two years ago, and occasional alcohol use. Home medications include cetirizine, carvedilol, sevelamer, vitamin D3, Velphoro, and Lokelma. He has no known drug allergies. On examination, the patient was alert and oriented to time, place, and person and responded appropriately to questions. Initial blood pressure was markedly elevated. EKG showed sinus rhythm with nonspecific T-wave abnormalities in lateral leads. Chest X-ray revealed no acute disease. Head CT showed no acute intracranial abnormality. Laboratory evaluation revealed hypokalemia with potassium of 3.4 mmol/L, which was repleted. MRSA screen and hepatitis B surface antigen were sent. The patient was managed with pain control using acetaminophen and antihypertensive therapy including amlodipine 10 mg PO daily, carvedilol 6.25 mg PO every 12 hours, and hydralazine 25 mg PO every 8 hours. Nephrology was consulted for ESRD management, and sevelamer 800 mg PO three times daily was continued. The patient was placed on a renal diet and received PUD prophylaxis with pantoprazole 40 mg daily. Dialysis schedule was maintained on Saturday and Saturday. An echocardiogram was performed for evaluation of hypertensive emergency. Blood pressure at the time of the study was 148/92 mmHg. The study demonstrated normal left ventricular ejection fraction of 65%, normal cardiac valves, normal right ventricular function, and no pericardial effusion. Measurements included LVDd 5.4 cm, LVDs 4.0 cm, LA 4.0 cm, EF 65%, IVSd 1.0 cm, and PWd 1.0 cm. Doppler findings showed normal mitral, aortic, tricuspid, and pulmonic valve function with no significant gradients or stenosis. The patient remained hemodynamically stable after initiation of therapy and reported improvement in headache and dizziness. His vitals have remained stable for discharge home, follow up visit in discharge clinic. All medications and recommendations were thoroughly explained and the patient states he understands and agrees. Detailed discussion held with patient at bedside were all questions were answered and concerns were addressed. Physical examination General Appearance: Cooperative. Well developed. Well nourished. NAD Head Exam: Normal inspection Neck Exam: Normal inspection. Non-tender. Normal alignment Pulmonary/Respiratory: Chest non-tender. Clear bilateral breath sounds, no crackles, no wheezing. Cardiovascular/Chest: Regular rate and rhythm. No murmurs. No JVD. Peripheral Pulses: 2+ Radial (R). 2+ Radial (L). 2+ Pedal (R). 2+ Pedal (L) Abdominal Exam: Normal bowel sounds. Soft. normal abdomen, no visible veins, Nontender. No hepatospenomegaly. No masses Ankle Exam: Negative ankle edema Lower extremities: Negative lower extremity edema Neuro/Mental Status: A&O x4. Coherent. Thoughts/Psych: Normal thought pattern. Appropriate mood and affect. Good judgement and insight Skin Exam: Normal inspection. Normal color. Warm. Dry Operations or Procedures PATIENT: JULIA PIERRE ACCT: [id number] UNIT: [id number] : 1980 LOC: OVERFLOW ROOM / BED: [address] [place] [address] AGE / SEX: 45 / M ADM STATUS: ADM IN SERVICE ORDERING PHYSICIAN: LEIGH ANN EPPERSON RESIDENT PROCEDURE(s): CXRP - CHEST PORTABLE REASON: hypertensive emergency ORDER NUMBER(s): [id number], ACCESSION NUMBER(s): [id number] CHEST RADIOGRAPH Indication: hypertensive emergency Technique: Single frontal view of the chest was obtained COMPARISON: None FINDINGS: Right-sided dialysis line with tip near the cavoatrial junction. Lungs and pleural spaces are clear. Cardiac silhouette and bhavani are within normal limits. Bones and soft tissues demonstrate no significant abnormality. IMPRESSION: No acute disease. PATIENT: JULIA PIERRE ACCT: [id number] UNIT: [id number] : 1980 LOC: ER ROOM / BED: / AGE / SEX: 45 / M ADM STATUS: REG ER SERVICE 1825 ORDERING PHYSICIAN: TOO SALGUERO MD PROCEDURE(s): HWOCT - HEAD WITHOUT CONTRAST REASON: near syncope ORDER NUMBER(s): [id number], ACCESSION NUMBER(s): [id number] COMPUTERIZED TOMOGRAPHY OF THE HEAD WITHOUT CONTRAST REASON FOR STUDY: near syncope COMPARISON: None TECHNIQUE: Helical tomographic scans were obtained through the brain. 2-D coronal and sagittal reformatted images are provided. Radiation optimization: All CT scans at this facility use at least one of these dose optimization techniques: Automated exposure control mA and/or kV adjustment per patient size (includes targeted exams where dose is matched to clinical indication) or iterative reconstruction. RADIATION DOSE: CTDI: 52 mGy DLP: 836 mGy-cm FINDINGS: No suspicious intracranial hyperdensity to suggest acute blood. There is no mass effect nor midline shift. There is no hydrocephalus. The suprasellar cistern is intact. The calvarium is intact. The visualized mastoid air cells and paranasal sinuses are clear. IMPRESSION: No acute intracranial abnormality. PATIENT: JULIA PIERRE ACCT: [id number] UNIT: [id number] : 1980 LOC: [facility] ROOM / BED: [facility] / A AGE / SEX: 45 / M ADM STATUS: ADM IN SERVICE 2240 ORDERING PHYSICIAN: LEIGH ANN EPPERSON PROCEDURE(s): ECIDC - ECHO 2D MODE CARDIAC DOP REASON: Hypertensive emergency ORDER NUMBER(s): [id number], ACCESSION NUMBER(s): [id number] APPROVED REPORT EXAM: Two-dimensional and M-mode echocardiogram with Doppler and color Doppler. Blood Pressure: 148/92 mmHg INDICATION Hypertension RISK FACTORS Height: 5'8", Weight: 194 DIMENSIONS LVDd 5.4 (3.8-5.7cm) LA (2D) 4.0 (1.9-4.0cm) Aortic Root 3.3 (2.0- 3.7cm) LVDs 4.0 (2.5-4.0cm) LA (MM) (1.9-4.0cm) Aortic Cusp Exc 2.1 (1.5- 2.0cm) EF (%) 50.0 (55-70%) Rt. Atrium 4.1 (1.9-4.0cm) Asc. Aorta 3.2 cm IVSd 1.0 (0.7-1.1cm) RV (D) 3.9 (1.8-2.4cm) PWd 1.0 (0.7-1.1cm) Mitral Valve Mitral Mitral Stenosis E wave 0.66m/s MV Mean GR. mmHg A wave 0.71m/s MV Peak GR. mmHg E/A ratio 0.9 2D MVA cm2 DECEL Time 217ms PRESS 1/2 Time ms Aortic Valve Aortic Valve Aortic Stenosis V1 1.01m/s AO Mean GR. 4mmHg V2 1.31m/s AO Peak GR. 7mmHg LVOT Diameter 2.3 (1.8-2.4cm) Doppler KAILYN 3.20cm2 Pulmonic Valve V2 1.40m/s Tricuspid Valve TR Velocity 2.60m/s RVSP 30mmHg Conclusion NORMAL LV EF AND IS 65% NORMAL VALVES NORMAL RV FUNCTION NO EFFUSION SIGNED BY: ALEX SUE MD SIGNED DATE/TIME: 09/28/252058 PATIENT: JULIA PIERRE ACCT: [id number] : 1980 LOC: OVERFLOW ROOM / BED: [address] [place] [address] A AGE / SEX: 45 / M ADM STATUS: ADM IN SERVICE UNIT: [id number] ORDERING PHYSICIAN: TOO SALGUERO MD PROCEDURE(s): EKG - ELECTROCARDIGRAM ORDER NUMBER(s): [id number], ACCESSION NUMBER(s): [id number] [facility] Test Date: 2025-09-27 Test Time: 21:59:57 Pat Name: JULIA PIERRE Department: ER Room: [address] [place] [address] Gender: M Coke Inspector: YAMILET : 1980 Requested By: TOO SALGUERO Order Number: [id number] Reading MD: Measurements Intervals [place] Rate: 75 P: 9 IA: 147 QRS: 73 QRSD: 80 T: 96 QT: 417 QTc: 466 Interpretive Statements Sinus rhythm Nonspecific T abnormalities, lateral leads Condition at Discharge: Stable Final Diagnosis/Problems List Hypertensive emergency Hypertensive heart disease with possible chronic diastolic heart failure End-stage renal disease on hemodialysis Hypokalemia Discharge Disposition: Home Discharge Instruct/Medications Diet: Renal Activity: No Restrictions, As Tolerated Follow Up/Referral: Follow up with PCP in 1 week Medications: see prescription continue home medications Scheduled Amlodipine Besylate (Amlodipine Besylate), 1 TAB PO DAILY, (Reported) Amlodipine Besylate (Norvasc Tablet), 10 MG PO DAILY B-Complex W/ C & Folic Acid (Nephro-Jae), 1 TAB PO DAILY, (Reported) Carvedilol (Carvedilol), 1 TAB PO BID, (Reported) Carvedilol (Coreg), 6.25 MG PO Q12HR Cholecalciferol (D3 High Potency), 1 TAB PO DAILY, (Reported) Hydralazine HCl (Hydralazine HCl), 25 MG PO Q8HR Sevelamer Carbonate (Sevelamer Carbonate), 2 TAB PO TID, (Reported) Sodium Zirconium Cyclosilicate (Lokelma), 5 GM PO DAILY Discharge Statement: "Patient was advised to return to the ER or call 911 if any headaches, dizziness, shortness of breath, chest pain, abdominal pain, bleeding, fevers, or worsening of medical condition. Patient was counseled about treatment plan, medications, possible side effects, patientverbalized understanding. All questions were answered to the best of my ability. This discharge took greater then 30 minutes in planning, reviewing documentation, counseling the patient, and discussing with other team members." ASSESSMENT ASSESSMENT Assessment Hypertensive emergency Hypertensive heart disease with possible chronic diastolic heart failure End-stage renal disease on hemodialysis Hypokalemia Date of Service: Sep 29, 2025 Billing Provider: VELMA MCCARTY MD Common Visit Codes: 11791-KBU/OBS DISCH DAY >30min HARJINDERNOELLELUCRETIA RESIDENT Sep 29, 2025 13:41
[2025-09-29 14:33] VITALS: BP 140/85; PULSE 64; RESP 18; TEMP 36.4; O2SAT 96
--- NOTE | 2025-09-29 15:07 | DVHPN2 ---
Progress Note - Dictate Date Seen: Sep 29, 2025 Medical Necessity Reason Pt with a Central, PICC or Fol: No Subjective Patient wants to go home he feels fine vital signs Vital Sign Date Time Temp Pulse Resp B/P (MAP) Pulse Ox O2 Delivery O2 Flow Rate FiO2 09/29/25 14:33 36.4 64 18 96 09/29/25 12:34 140/85 (103) 09/29/25 08:00 Room Air* 0 21 Total Intake and Output 09/28/25 09/28/25 09/29/25 15:00 23:00 07:00 Intake Total 240 ml 0 ml Output Total 0 ml Balance 240 ml 0 ml medications Current Medications Medications Dose Ordered Sig/Juan Pablo Route Start Time Stop Time Status Last Admin Dose Admin Acetaminophen 650 mg Q4HP PRN PO 09/27/25 21:15 Carvedilol 6.25 mg Q12HR PO 09/28/25 10:00 09/29/25 10:16 6.25 MG Sevelamer HCl 800 mg TIDWM PO 09/28/25 08:00 09/29/25 13:23 800 MG Pantoprazole Sodium 40 mg DAILY@0600 PO 09/28/25 06:00 09/29/25 05:29 40 MG Amlodipine Besylate 10 mg DAILY PO 09/29/25 10:00 09/29/25 10:15 10 MG Hydralazine HCl 25 mg Q8HR PO 09/28/25 22:00 09/29/25 05:29 25 MG objective HEENT: No evidence of JVD, no oral ulcers. Pulmonary: Lungs are clear on auscultation bilaterally Cardiovascular S1-S2, no S3 or S4 Abdomen: Bowel sounds positive, soft no rebound tenderness Skin: No rash Neurological: Alert, oriented, no focal weakness laboratory and microbiology Laboratory Tests 09/29/25 04:30 Test 09/29/25 04:30 Range/Units Serum Glucose 74 74-106 mg/dL Assessment/Plan Assessment: 1. End-stage renal disease on hemodialysis Saturday add Saturday 2. Accelerated hypertension 3. Headache 4. Mild hyperkalemia Recommendation add plan amlodipine 10 mg daily hydralazine 25 mg every 8 hours, hold for SBP less than 110 Continue carvedilol 6.25 mg twice a day PRN clonidine 0.1 mg for SBP more than 180 Low-potassium diet Dialysis as per his regular schedule Resume antihypertensive meds up titrate as needed Fluid restriction less than 1 L per day We will modify his dialysis as an outpatient He needs a AV fistula creation which is in process Jeffryma x1 Okay to discharge from Nephrology perspective. Thank you very much for allowing us to participate in the care of this patient please contact if you have any questions. Plan discussed with: Patient JACOB PHAN MD Sep 29, 2025 15:07
== END 2025-09-29 15:16 | disposition home or self-care (01) | DRG 199 ==
LOC: ER 17:59 → OVERFLOW 21:14 → TELE-EAST 09-28 12:51
PROVIDERS: ADMIT Internal Medicine Geriatric Medicine; ATTEND Internal Medicine Geriatric Medicine
DX: I16.1 Hypertensive emergency (principal); N18.6 End stage renal disease; I50.32 Chronic diastolic (congestive) heart failure; G90.9 Disorder of the autonomic nervous system, unspecified; I13.2 Hypertensive heart and chronic kidney disease with heart failure and with stage 5 chronic kidney disease, or end stage renal disease; Z99.2 Dependence on renal dialysis; E87.6 Hypokalemia; E55.9 Vitamin D deficiency, unspecified; E87.5 Hyperkalemia; Z82.49 Family history of ischemic heart disease and other diseases of the circulatory system; Z79.899 Other long term (current) drug therapy
CPT/HCPCS: 36415; 70450; 71045; 80048; 80053; 80307; 81001; 85025; 87081; 87340; 93005; 93306; 99291; G0378